=== PATIENT | female | born 1995 | race Caucasian/White ===

== ENCOUNTER 2017-04-08 20:32 | Emergency (ER) | payer OTHER ==
[~2017-04-08] VITALS: Ht 167.6 cm; Wt 128.6 kg
[2017-04-08 21:29] LABS: ASPARTATE AMINO TRANSFERASE 10 U/L (15-37); BLOOD UREA NITROGEN 15 mg/dL (7-18)
[2017-04-08] MEDS ORDERED: ONDANSETRON ODT 4 MG PO ONE (21:30)
[2017-04-08] MEDS ORDERED: LORazepam 1MG TABLET ONE (21:45)
[2017-04-08] MEDS ORDERED: ONDANSETRON ODT 4 MG ONE (21:47)
[2017-04-08 22:30] VITALS: BP 116/66
== END 2017-04-08 23:05 | disposition home or self-care (01) ==
LOC: ED 22:59
DX: R10.84 Generalized abdominal pain (principal)
CPT/HCPCS: 36415; 76700; 80053; 81001; 83690; 84703; 85025; 87086; 99285; Q0162

== ENCOUNTER 2018-04-04 11:11 | Emergency (ER) | payer MEDICAID, OTHER ==
[~2018-04-04] VITALS: Ht 167.6 cm; Wt 138.5 kg
[2018-04-04 11:33] VITALS: BP 107/70
[2018-04-04] MEDS ORDERED: KETOROLAC 30 MG/1 ML ONE (12:49)
[2018-04-04] MEDS ORDERED: KETOROLAC 30 MG/1 ML IM ONE (13:00)
== END 2018-04-04 14:10 | disposition home or self-care (01) ==
LOC: ED 12:00
DX: M54.16 Radiculopathy, lumbar region (principal); M54.32 Sciatica, left side; Z88.2 Allergy status to sulfonamides
CPT/HCPCS: 72110; 73502; 96372; 99284; J1885

== ENCOUNTER → 2018-10-04 | Day surgery (SDC) | payer OTHER | END | disposition home or self-care (01) | LOC: ED 20:50 → SDC 20:50 | PROVIDERS: ATTEND Emergency Medicine | DX: Z02.9 Encounter for administrative examinations, unspecified (principal) ==